=== PATIENT | female | born 1950 | race Caucasian/White ===

== ENCOUNTER → 2023-12-05 16:03 | Outpatient (REF) | payer OTHER, SELFPAY | LOC: WDC 16:03 | PROVIDERS: ATTENDING PHYSICIAN Obstetrics & Gynecology; FAMILY PHYSICIAN Family Medicine | DX: Z12.31 Encounter for screening mammogram for malignant neoplasm of breast (principal) | CPT/HCPCS: 77063; 77067 ==

== ENCOUNTER 2024-06-19 12:48 | Emergency (ER) | payer OTHER, SELFPAY ==
[2024-06-19] VITALS (8 sets, daily range): BP systolic 144–170; BP diastolic 67–83; PULSE 82–89
[2024-06-19 13:24] LABS: % Basophils 0.4 % (0-2); % Eosinophils 0.3 % (0-6); % Immature Granulocytes 0.4 % (0-0.5); % Lymphocytes 9.1 % (20.5-51.1); % Monocytes 4.5 % (1.7-9.3); % Neutrophils 85.3 % (42.2-75.2); Absolute Monocytes 0.5 10^3/uL (0.1-0.6); Absolute Neutrophils 9.3 10^3/uL (1.4-6.5); Hematocrit 28.9 % (37.0-47.0); Hemoglobin 9.4 g/dL (12.0-16.0); Mean Corp Hgb Conc. 32.5 g/dL (33.0-37.0); Mean Corpuscular Hgb 30.3 pg (27.0-31.0); Mean Corpuscular Volume 93.2 fL (81.0-99.0); Mean Platelet Volume 8.8 fL (7.4-10.4); Nucleated Red Blood Cells % 0 %; Platelet Count 447 10^3/uL (130-400); White Blood Cell Count 10.9 10^3/uL (4.8-10.8)
[2024-06-19 13:40] LABS: ALT (SGPT) 23 U/L (0-35); AST (SGOT) 31 U/L (14-36); Albumin 4.5 g/dl (3.5-5.0); Alkaline Phosphatase 84 U/L (38-126); Blood Urea Nitrogen 22 mg/dl (7-17); Calcium 9.1 mg/dl (8.4-10.2); Carbon Dioxide 24 mmol/L (22-30); Glucose 114 mg/dl (70-99); Total Bilirubin 0.8 mg/dl (0.2-1.3); Total Protein 6.9 g/dl (6.3-8.2); eGFR > 60.00
[2024-06-19 13:51] LABS: Troponin I < 0.012 ng/ml
--- NOTE | 2024-06-19 14:25 | ED.GENMED ---
History of Present Illness
General
Chief Complaint: Fainting/Passed Out
Source: patient
Exam Limitations: none
Time Seen by Provider: 06/19/24 13:58
Nursing documentation reviewed up to this point in time: agreed with
History of Present Illness
History of Present Illness:
Patient is a 74-year-old female with history of ankylosing spondylitis presents to the ER for evaluation of syncopal episode. Patient reports around 1030 this morning she was standing in her kitchen to get something to eat and started to feel dizzy
broke out in a cold sweat sat down in a chair and woke up to her dog licking her hand. Since then she has felt dizzy and intermittently nauseous. She had no associated chest pain/sob She had no bowel or bladder incontinence. She does report she
has had loose stools for the past several weeks several times a day. She denies any black or dark stools. No vomiting. No fevers no other sick contacts and no body aches or chills no recent antibiotics.No recent fevers. Patient feels much
better now.
Past History
Past History
ED Past Medical History: None
ED Past Surgical History: None
Review of Systems
Review of Systems
Allergies reviewed?: Yes
All Other Systems: ROS reviewed and negative except as documented in HPI and ROS
Constitutional: Denies fever, fatigue or chills
EENT: Reports no symptoms
Respiratory: Reports no symptoms
Cardiac: Reports syncope; Denies chest pain or palpitations
ABD/GI: Reports nausea and diarrhea; Denies vomiting
: Reports no symptoms
Musculoskeletal: Reports no symptoms
Skin: Reports no symptoms
Neurological: Reports dizzy; Denies headache
Psychiatric: Reports no symptoms
Phy Exam
General Physical Exam
General Presentation: no apparent distress
General age: appears stated age
General Skin: warm and dry
General Habitus: normal
General Mental: alert
General Hydration: appears well hydrated
Neurological Exam
Neurological Exam: alert and oriented x3
Musculoskeletal Exam
Musculoskeletal Exam: full ROM
Skin Exam
Skin Exam: normal color and warm/dry
Psychiatric Exam
Psychiatric Exam: normal mood/affect
Course
Orders/Labs/Results
Orders:
Orders
06/19/24 12:50
ECG [Electrocardiogram (*1)] Urgent
Reason for Study: Syncope
06/19/24 12:51
EKG- Treatment ONCE
06/19/24 13:08
Complete Blood Count/With Diff Urgent
Comprehensive Metabolic Panel Urgent
Troponin I Urgent
06/19/24 14:32
Ondansetron Injectable [Zofran] 4 mg IV NOW STA
06/19/24 14:33
0.9% Sodium Chloride 1000 ml [Nss] 1,000 ml IV BOLUS
Abnormal Lab Results
06/19/24
13:08
WBC 10.9 H 10^3/uL
(4.8-10.8)
RBC 3.10 L 10^6/uL
(4.20-5.40)
Hgb 9.4 L g/dL
(12.0-16.0)
Hct 28.9 L %
(37.0-47.0)
MCHC 32.5 L g/dL
(33.0-37.0)
RDW 17.0 H %
(11.5-14.5)
Plt Count 447 H 10^3/uL
(130-400)
Absolute Neuts (auto) 9.3 H 10^3/uL
(1.4-6.5)
Absolute Lymphs (auto) 1.0 L 10^3/uL
(1.2-3.4)
Neutrophils % 85.3 H %
(42.2-75.2)
Lymphocytes % 9.1 L %
(20.5-51.1)
BUN 22 H mg/dl
(7-17)
Glucose 114 H mg/dl
(70-99)
06/19/24 13:08
06/19/24 13:08
Vital Signs
Initial and Last Documented VS:
Initial Vital Signs
Temp Pulse Resp BP Pulse Ox
97.1 F 82 18 170/83 99
06/19/24 13:00 06/19/24 13:00 06/19/24 13:00 06/19/24 13:00 06/19/24 13:00
Last Documented Vital Signs
Temp Pulse Resp BP Pulse Ox
97.1 F 92 18 162/72 97
06/19/24 13:00 06/19/24 17:00 06/19/24 17:00 06/19/24 16:08 06/19/24 17:00
MDM/Problems Addressed
Differential Diagnosis Includes:
Not limited to vasovagal syncope dehydration
MDM/Problems Addressed:
Patient is a 74-year-old female who presented to the ER for syncope. Patient was standing in her kitchen this morning felt woozy and sat down broke out to a sweat and passed out. She was little nauseous today little lightheaded however she
presents awake alert no acute distress. She has had several episodes 2 to 3/day of liquidy stools but denies any black or blood in her stool for the past several weeks. Patient looks mildly dry on exam with a BUN of 22 however she was not
tachycardic. She denies any abdominal pain no vomiting fevers no other recent illness. Patient was hydrated here given Zofran feeling better nontoxic. No complaint of chest pain. No EKG abnormal findings; normal troponin.
Case d/c w/ [facility]
Patient has not had any diarrhea here. discussed with patient that she will need to follow-up with a family doctor for reevaluation and will possibly need stool specimen if this continues.
discussed close outpatient follow-up with family doctor in next several days for reevaluation of symptoms
*Radiology
Radiology exam reviewed: radiology read reviewed
*Pulse Oximetry
Patient hypoxic: no
*Critical Care Note
Total Time (30-74mins, 75-104mins- exclusive of procedures): Not Applicable
ED Attending Note
-
Portions of this chart may have been created with voice recognition software.� Occasional wrong word or��sound alike� substitutions may have occurred due to the inherent limitations of voice recognition software.
Discharge Plan
Departure
Patient Disposition: Home (Routine Discharge)
Date of Disposition: 06/19/24
Time of Disposition: 16:07
Patient with high blood pressure during this ER visit?: Yes
Condition: Fair
Discharge Problem:
Syncope, Dehydration
Instructions: Syncope (Fainting) (DC), Dehydration in adults - ED discharge instructions, BLOOD PRESSURE
Prescriptions:
No Action
prednisone 10 MG tablet
10 mg PO .TAPER Qty: 30 0RF
Rx Instructions:
Take [id number], [id number], [id number], [id number], [id number]
hydrocortisone 1 APPLIC ointment
1 applic topical BID Qty: 15 0RF
Referrals:
Sebastian Flowers MD [Family Provider] -
Activity Restrictions/Additional Instructions:
As discussed stay well-hydrated. Call your family doctor to make an appointment in the next several days for reevaluation of symptoms. If your diarrhea continues you will need outpatient stool specimen.
Return if any worsening of symptoms.
Interventions
Interventions:
*Risk Screen - Suicide Last Done: 06/19/24 13:00
*General Assessment Last Done: 06/19/24 13:00
*Neglect/Abuse Screening Last Done: 06/19/24 13:00
ED- Fall Risk Assessment Last Done: 06/19/24 13:20
*ED COVID-19 Vaccine History Last Done: 06/19/24 14:37
*Nursing Disposition Last Done: 06/19/24 17:19
ED- Cardiac Assessment Last Done: 06/19/24 13:20
ED- Neurological Assessment Last Done: 06/19/24 13:20
Discharge Date and Time
Discharge Date/Time: 06/19/24 17:19
Print Language: LIBERIAN
[2024-06-19 14:33] LABS: Chloride 103 mmol/L (98-107); Potassium 4.4 mmol/L (3.5-5.1); Sodium 135 mmol/L (135-145)
[2024-06-19] MEDS: ZOFRAN 4 MG IV (14:39)
[2024-06-19] MEDS: NSS 1000 IV (14:39)
== END 2024-06-19 17:19 | disposition home or self-care (01) ==
LOC: EMR 12:48
PROVIDERS: Emergency Medicine; EMERGENCY PHYSICIAN Emergency Medicine; FAMILY PHYSICIAN Family Medicine
DX: R55 Syncope and collapse (principal); E86.0 Dehydration; R03.0 Elevated blood-pressure reading, without diagnosis of hypertension
CPT/HCPCS: 99284; 96374; 96361; 80053; 84484; 85025; 93005

== ENCOUNTER 2024-08-14 06:30 | Day surgery (SDC) | payer OTHER, SELFPAY | END 2024-08-14 14:05 | disposition home or self-care (01) | LOC: GI 06:30 | PROVIDERS: ATTENDING PHYSICIAN Internal Medicine Gastroenterology | DX: D50.9 Iron deficiency anemia, unspecified (principal); K57.30 Diverticulosis of large intestine without perforation or abscess without bleeding; K64.8 Other hemorrhoids; R12 Heartburn; K44.9 Diaphragmatic hernia without obstruction or gangrene; K31.89 Other diseases of stomach and duodenum; K31.A19 Gastric intestinal metaplasia without dysplasia, unspecified site | CPT/HCPCS: 43239; 45378; 88305; 88342 ==

== ENCOUNTER 2024-10-02 14:03 | Outpatient (RCR) | payer OTHER, SELFPAY ==
[2024-09-04 14:30] VITALS: BP 167/68
[2024-09-04] MEDS: VENOFER 110 MG IV (14:34)
[2024-09-04 15:52] VITALS: BP 121/81
[2024-09-11 14:30] VITALS: BP 157/75
[2024-09-11] MEDS: VENOFER 110 MG IV (14:38)
[2024-09-11 15:58] VITALS: BP 173/75
[2024-09-18 14:34] VITALS: BP 151/95
[2024-09-18] MEDS: VENOFER 110 MG IV (14:43)
[2024-09-18 15:42] VITALS: BP 160/66
[2024-09-25 14:30] VITALS: BP 152/76
[2024-09-25] MEDS: VENOFER 110 MG IV (14:32)
[2024-09-25 15:37] VITALS: BP 162/81
[2024-10-02 14:15] VITALS: BP 173/87
[2024-10-02] MEDS: VENOFER 110 MG IV (14:25)
[2024-10-02 15:40] VITALS: BP 162/72
== END 2024-10-03 08:33 | disposition home or self-care (01) ==
LOC: OID 14:03
PROVIDERS: ATTENDING PHYSICIAN Internal Medicine Gastroenterology; FAMILY PHYSICIAN Internal Medicine Cardiovascular Disease
DX: D50.9 Iron deficiency anemia, unspecified (principal)
CPT/HCPCS: 96365; J1756

== ENCOUNTER → 2025-03-05 09:36 | Outpatient (REF) | payer OTHER, SELFPAY | LOC: RAD 09:36 | PROVIDERS: ATTENDING PHYSICIAN Internal Medicine Rheumatology; FAMILY PHYSICIAN Family Medicine | DX: M81.0 Age-related osteoporosis without current pathological fracture (principal) | CPT/HCPCS: 77080 ==